=== PATIENT | male | born 1965 | race Caucasian/White ===

== ENCOUNTER 2025-02-03 03:42 | Outpatient (CLI) | payer OTHER, SELFPAY ==
[2025-02-03 10:17] LABS: Abs Immature Grans 0.04 10^3/uL (0.0-0.06); HCT 40.1 % (40.0-50.0); HGB 13.6 g/dL (13.5-17.5); Immature Grans % 0.4 %; MCH 29.9 pg (27.0-33.0); MCHC 33.9 % (32.0-36.0); MCV 88 fL (80-95); MPV 8.0 fL (8.0-11.0); Platelet Count 345 10^3/uL (130-400); RBC 4.55 10^6/uL (4.36-5.78); RDW 12.0 % (11.8-14.1); RDW-SD 38.7 fL; WBC 11.03 10^3/uL (4.4-10.8)
[2025-02-03 10:29] LABS: ALT 59 U/L (16-63); AST 21 U/L (15-37); Albumin 3.7 g/dL (3.4-5.0); Alkaline Phosphatase 113 U/L (46-116); Anion Gap 11.3 mmol/L (3-11); BUN 14 mg/dL (7-18); Bilirubin, Total 0.5 mg/dL (0.2-1.0); CO2 26.7 mmol/L (21.0-32.0); Calcium 9.7 mg/dL (8.5-10.1); Chloride 99 mmol/L (98-107); Estimated GFR 101.32 (mL/min/1.73m2); Glucose 143 mg/dL (74-106); Magnesium 2.1 mg/dL (1.8-2.4); Potassium 3.8 mmol/L (3.5-5.1); Sodium 137 mmol/L (136-145); Total Protein 8.2 g/dL (6.4-8.2)
== END 2025-02-03 03:43 | disposition home or self-care (01) ==
PROVIDERS: PCP Family Medicine; Visit Provider Internal Medicine Hematology
DX: C07 Malignant neoplasm of parotid gland (principal)
CPT/HCPCS: 36415; 80053; 83735; 85025

== ENCOUNTER 2025-02-10 03:09 | Outpatient (CLI) | payer OTHER, SELFPAY ==
[2025-02-10 08:31] LABS: Abs Immature Grans 0.03 10^3/uL (0.0-0.06); HCT 39.4 % (40.0-50.0); HGB 13.2 g/dL (13.5-17.5); Immature Grans % 0.4 %; MCH 29.7 pg (27.0-33.0); MCHC 33.5 % (32.0-36.0); MCV 89 fL (80-95); MPV 8.2 fL (8.0-11.0); Platelet Count 255 10^3/uL (130-400); RBC 4.45 10^6/uL (4.36-5.78); RDW 11.9 % (11.8-14.1); RDW-SD 38.5 fL; WBC 7.86 10^3/uL (4.4-10.8)
[2025-02-10 08:54] LABS: ALT 34 U/L (16-63); AST 13 U/L (15-37); Albumin 3.6 g/dL (3.4-5.0); Alkaline Phosphatase 119 U/L (46-116); Anion Gap 6.8 mmol/L (3-11); BUN 16 mg/dL (7-18); Bilirubin, Total 0.4 mg/dL (0.2-1.0); CO2 30.2 mmol/L (21.0-32.0); Calcium 9.7 mg/dL (8.5-10.1); Chloride 97 mmol/L (98-107); Estimated GFR 86.16 (mL/min/1.73m2); Glucose 112 mg/dL (74-106); Magnesium 1.9 mg/dL (1.8-2.4); Potassium 4.2 mmol/L (3.5-5.1); Sodium 134 mmol/L (136-145); Total Protein 7.9 g/dL (6.4-8.2)
== END 2025-02-10 03:10 | disposition home or self-care (01) ==
LOC: LBO 03:09
PROVIDERS: PCP Family Medicine; Visit Provider Internal Medicine Hematology
DX: C07 Malignant neoplasm of parotid gland (principal)
CPT/HCPCS: 36415; 80053; 83735; 85025

== ENCOUNTER 2025-02-17 01:59 | Outpatient (CLI) | payer OTHER, SELFPAY ==
[2025-02-17 08:09] LABS: Abs Immature Grans 0.02 10^3/uL (0.0-0.06); HCT 39.0 % (40.0-50.0); HGB 13.1 g/dL (13.5-17.5); Immature Grans % 0.3 %; MCH 30.0 pg (27.0-33.0); MCHC 33.6 % (32.0-36.0); MCV 89 fL (80-95); MPV 8.1 fL (8.0-11.0); Platelet Count 234 10^3/uL (130-400); RBC 4.36 10^6/uL (4.36-5.78); RDW 11.9 % (11.8-14.1); RDW-SD 38.3 fL; WBC 5.91 10^3/uL (4.4-10.8)
[2025-02-17 08:45] LABS: ALT 42 U/L (16-63); AST 14 U/L (15-37); Albumin 3.6 g/dL (3.4-5.0); Alkaline Phosphatase 129 U/L (46-116); Anion Gap 7.2 mmol/L (3-11); BUN 23 mg/dL (7-18); Bilirubin, Total 0.4 mg/dL (0.2-1.0); CO2 30.8 mmol/L (21.0-32.0); Calcium 9.8 mg/dL (8.5-10.1); Chloride 99 mmol/L (98-107); Estimated GFR 86.16 (mL/min/1.73m2); Glucose 81 mg/dL (74-106); Magnesium 1.8 mg/dL (1.8-2.4); Potassium 4.1 mmol/L (3.5-5.1); Sodium 137 mmol/L (136-145); Total Protein 7.8 g/dL (6.4-8.2)
== END 2025-02-17 02:00 | disposition home or self-care (01) ==
LOC: LBO 01:59
PROVIDERS: PCP Family Medicine; Visit Provider Internal Medicine Hematology
DX: C07 Malignant neoplasm of parotid gland (principal)
CPT/HCPCS: 36415; 80053; 83735; 85025

== ENCOUNTER 2025-02-24 03:02 | Outpatient (CLI) | payer OTHER, SELFPAY ==
[2025-02-24 08:56] LABS: Abs Immature Grans 0.01 10^3/uL (0.0-0.06); HCT 37.0 % (40.0-50.0); HGB 12.8 g/dL (13.5-17.5); Immature Grans % 0.2 %; MCH 30.1 pg (27.0-33.0); MCHC 34.6 % (32.0-36.0); MCV 87 fL (80-95); MPV 8.1 fL (8.0-11.0); Platelet Count 191 10^3/uL (130-400); RBC 4.25 10^6/uL (4.36-5.78); RDW 11.9 % (11.8-14.1); RDW-SD 37.6 fL; WBC 4.45 10^3/uL (4.4-10.8)
[2025-02-24 09:17] LABS: ALT 36 U/L (16-63); AST 18 U/L (15-37); Albumin 3.5 g/dL (3.4-5.0); Alkaline Phosphatase 113 U/L (46-116); Anion Gap 8.4 mmol/L (3-11); BUN 20 mg/dL (7-18); Bilirubin, Total 0.6 mg/dL (0.2-1.0); CO2 28.6 mmol/L (21.0-32.0); Calcium 9.9 mg/dL (8.5-10.1); Chloride 97 mmol/L (98-107); Estimated GFR 97.78 (mL/min/1.73m2); Glucose 114 mg/dL (74-106); Magnesium 1.8 mg/dL (1.8-2.4); Potassium 4.5 mmol/L (3.5-5.1); Sodium 134 mmol/L (136-145); Total Protein 8.0 g/dL (6.4-8.2)
== END 2025-02-24 03:03 | disposition home or self-care (01) ==
LOC: LBO 03:04
PROVIDERS: PCP Family Medicine; Visit Provider Internal Medicine Hematology
DX: C07 Malignant neoplasm of parotid gland (principal)
CPT/HCPCS: 36415; 80053; 83735; 85025

== ENCOUNTER 2025-03-03 03:26 | Outpatient (CLI) | payer OTHER, SELFPAY ==
[2025-03-03 08:31] LABS: Abs Immature Grans 0.01 10^3/uL (0.0-0.06); HCT 34.7 % (40.0-50.0); HGB 11.8 g/dL (13.5-17.5); Immature Grans % 0.4 %; MCH 29.7 pg (27.0-33.0); MCHC 34.0 % (32.0-36.0); MCV 87 fL (80-95); MPV 8.3 fL (8.0-11.0); Platelet Count 150 10^3/uL (130-400); RBC 3.97 10^6/uL (4.36-5.78); RDW 11.9 % (11.8-14.1); RDW-SD 37.7 fL; WBC 2.49 10^3/uL (4.4-10.8)
[2025-03-03 08:48] LABS: ALT 37 U/L (16-63); AST 20 U/L (15-37); Albumin 3.7 g/dL (3.4-5.0); Alkaline Phosphatase 124 U/L (46-116); Anion Gap 6.3 mmol/L (3-11); BUN 19 mg/dL (7-18); Bilirubin, Total 0.6 mg/dL (0.2-1.0); CO2 31.7 mmol/L (21.0-32.0); Calcium 9.8 mg/dL (8.5-10.1); Chloride 96 mmol/L (98-107); Estimated GFR 86.16 (mL/min/1.73m2); Glucose 112 mg/dL (74-106); Magnesium 1.7 mg/dL (1.8-2.4); Potassium 4.6 mmol/L (3.5-5.1); Sodium 134 mmol/L (136-145); Total Protein 8.1 g/dL (6.4-8.2)
== END 2025-03-03 03:27 | disposition home or self-care (01) ==
LOC: LBO 03:26
PROVIDERS: PCP Family Medicine; Visit Provider Internal Medicine Hematology
DX: C07 Malignant neoplasm of parotid gland (principal)
CPT/HCPCS: 36415; 80053; 83735; 85025

== ENCOUNTER 2025-03-24 03:37 | Outpatient (RCR) | payer OTHER, SELFPAY ==
[2025-03-10 08:03] LABS: Abs Immature Grans 0.02 10^3/uL (0.0-0.06); HCT 30.9 % (40.0-50.0); HGB 10.9 g/dL (13.5-17.5); Immature Grans % 1.2 %; MCH 30.3 pg (27.0-33.0); MCHC 35.3 % (32.0-36.0); MCV 86 fL (80-95); MPV 8.3 fL (8.0-11.0); Platelet Count 190 10^3/uL (130-400); RBC 3.60 10^6/uL (4.36-5.78); RDW 11.9 % (11.8-14.1); RDW-SD 35.7 fL
[2025-03-10 08:23] LABS: RBC Morphology Normal
[2025-03-10 08:24] LABS: ALT 29 U/L (16-63); AST 16 U/L (15-37); Albumin 3.4 g/dL (3.4-5.0); Alkaline Phosphatase 111 U/L (46-116); Anion Gap 8.7 mmol/L (3-11); BUN 23 mg/dL (7-18); Bilirubin, Total 0.6 mg/dL (0.2-1.0); CO2 28.3 mmol/L (21.0-32.0); Calcium 9.3 mg/dL (8.5-10.1); Chloride 95 mmol/L (98-107); Estimated GFR 97.78 (mL/min/1.73m2); Glucose 107 mg/dL (74-106); Magnesium 1.6 mg/dL (1.8-2.4); Potassium 3.9 mmol/L (3.5-5.1); Sodium 132 mmol/L (136-145); Total Protein 7.7 g/dL (6.4-8.2)
[2025-03-10 08:37] LABS: WBC 1.61 10^3/uL (4.4-10.8)
[2025-03-10] MEDS: Normal Saline Flush 10 ML SYR IVP (09:37)
[2025-03-17 09:24] LABS: Abs Immature Grans 0.01 10^3/uL (0.0-0.06); HCT 29.5 % (40.0-50.0); HGB 10.2 g/dL (13.5-17.5); Immature Grans % 0.5 %; MCH 30.3 pg (27.0-33.0); MCHC 34.6 % (32.0-36.0); MCV 88 fL (80-95); MPV 8.2 fL (8.0-11.0); Platelet Count 273 10^3/uL (130-400); RBC 3.37 10^6/uL (4.36-5.78); RDW 13.2 % (11.8-14.1); RDW-SD 38.6 fL; WBC 2.21 10^3/uL (4.4-10.8)
[2025-03-17 09:59] LABS: ALT 23 U/L (16-63); AST 14 U/L (15-37); Albumin 3.2 g/dL (3.4-5.0); Alkaline Phosphatase 130 U/L (46-116); Anion Gap 10.8 mmol/L (3-11); BUN 20 mg/dL (7-18); Bilirubin, Total 0.4 mg/dL (0.2-1.0); CO2 28.2 mmol/L (21.0-32.0); Calcium 9.8 mg/dL (8.5-10.1); Chloride 97 mmol/L (98-107); Estimated GFR 97.78 (mL/min/1.73m2); Glucose 118 mg/dL (74-106); Magnesium 1.7 mg/dL (1.8-2.4); Potassium 4.2 mmol/L (3.5-5.1); Sodium 136 mmol/L (136-145); Total Protein 7.7 g/dL (6.4-8.2)
[2025-03-17] MEDS: Normal Saline Flush 10 ML SYR IVP (10:09)
[2025-03-24 09:33] LABS: Abs Immature Grans 0.06 10^3/uL (0.0-0.06); HCT 30.1 % (40.0-50.0); HGB 10.5 g/dL (13.5-17.5); Immature Grans % 1.9 %; MCH 30.4 pg (27.0-33.0); MCHC 34.9 % (32.0-36.0); MCV 87 fL (80-95); MPV 8.3 fL (8.0-11.0); Platelet Count 308 10^3/uL (130-400); RBC 3.45 10^6/uL (4.36-5.78); RDW 13.3 % (11.8-14.1); RDW-SD 39.8 fL; WBC 3.19 10^3/uL (4.4-10.8)
[2025-03-24 10:07] LABS: ALT 30 U/L (16-63); AST 21 U/L (15-37); Albumin 3.4 g/dL (3.4-5.0); Alkaline Phosphatase 133 U/L (46-116); Anion Gap 10.2 mmol/L (3-11); BUN 22 mg/dL (7-18); Bilirubin, Total 0.4 mg/dL (0.2-1.0); CO2 27.8 mmol/L (21.0-32.0); Calcium 9.9 mg/dL (8.5-10.1); Chloride 97 mmol/L (98-107); Estimated GFR 86.16 (mL/min/1.73m2); Glucose 117 mg/dL (74-106); Magnesium 1.6 mg/dL (1.8-2.4); Potassium 4.3 mmol/L (3.5-5.1); Sodium 135 mmol/L (136-145); Total Protein 8.0 g/dL (6.4-8.2)
[2025-03-24] MEDS: Normal Saline Flush 10 ML SYR IVP (11:08)
== END 2025-03-30 23:59 | disposition home or self-care (01) ==
LOC: INF 03:37
PROVIDERS: Internal Medicine Hematology; PCP Family Medicine; Visit Provider Nurse Practitioner
DX: C07 Malignant neoplasm of parotid gland (principal); Z45.2 Encounter for adjustment and management of vascular access device
CPT/HCPCS: 36591; 80053; 83735; 85025

== ENCOUNTER 2025-04-21 09:30 | Outpatient (RCR) | payer OTHER, SELFPAY ==
[2025-04-02] MEDS: Normal Saline Flush 10 ML SYR IVP (08:08)
[2025-04-02 08:36] LABS: Abs Immature Grans 0.01 10^3/uL (0.0-0.06); HCT 28.7 % (40.0-50.0); HGB 9.6 g/dL (13.5-17.5); Immature Grans % 0.3 %; MCH 30.6 pg (27.0-33.0); MCHC 33.4 % (32.0-36.0); MCV 91 fL (80-95); MPV 8.3 fL (8.0-11.0); Platelet Count 247 10^3/uL (130-400); RBC 3.14 10^6/uL (4.36-5.78); RDW 15.8 % (11.8-14.1); RDW-SD 51.2 fL; WBC 3.21 10^3/uL (4.4-10.8)
[2025-04-02 08:58] LABS: ALT 19 U/L (16-63); AST 15 U/L (15-37); Albumin 3.5 g/dL (3.4-5.0); Alkaline Phosphatase 129 U/L (46-116); Anion Gap 7.5 mmol/L (3-11); BUN 27 mg/dL (7-18); Bilirubin, Total 0.5 mg/dL (0.2-1.0); CO2 30.5 mmol/L (21.0-32.0); Calcium 9.6 mg/dL (8.5-10.1); Chloride 100 mmol/L (98-107); Estimated GFR 86.16 (mL/min/1.73m2); Glucose 95 mg/dL (74-106); Magnesium 1.7 mg/dL (1.8-2.4); Potassium 4.4 mmol/L (3.5-5.1); Sodium 138 mmol/L (136-145); Total Protein 7.5 g/dL (6.4-8.2)
[2025-04-07] MEDS: Normal Saline Flush 10 ML SYR IVP (10:00)
[2025-04-07 10:38] LABS: Abs Immature Grans 0.01 10^3/uL (0.0-0.06); HCT 28.5 % (40.0-50.0); HGB 9.5 g/dL (13.5-17.5); Immature Grans % 0.2 %; MCH 30.4 pg (27.0-33.0); MCHC 33.3 % (32.0-36.0); MCV 91 fL (80-95); MPV 8.7 fL (8.0-11.0); Platelet Count 222 10^3/uL (130-400); RBC 3.12 10^6/uL (4.36-5.78); RDW 16.2 % (11.8-14.1); RDW-SD 53.1 fL; WBC 4.29 10^3/uL (4.4-10.8)
[2025-04-07 11:04] LABS: ALT 17 U/L (16-63); AST 12 U/L (15-37); Albumin 3.5 g/dL (3.4-5.0); Alkaline Phosphatase 131 U/L (46-116); Anion Gap 9.9 mmol/L (3-11); BUN 21 mg/dL (7-18); Bilirubin, Total 0.4 mg/dL (0.2-1.0); CO2 27.1 mmol/L (21.0-32.0); Calcium 9.9 mg/dL (8.5-10.1); Chloride 99 mmol/L (98-107); Estimated GFR 97.78 (mL/min/1.73m2); Glucose 102 mg/dL (74-106); Magnesium 1.8 mg/dL (1.8-2.4); Potassium 4.1 mmol/L (3.5-5.1); Sodium 136 mmol/L (136-145); Total Protein 7.5 g/dL (6.4-8.2)
[2025-04-14 08:32] LABS: Abs Immature Grans 0.01 10^3/uL (0.0-0.06); HCT 29.5 % (40.0-50.0); HGB 9.9 g/dL (13.5-17.5); Immature Grans % 0.3 %; MCH 31.0 pg (27.0-33.0); MCHC 33.6 % (32.0-36.0); MCV 93 fL (80-95); MPV 8.5 fL (8.0-11.0); Platelet Count 220 10^3/uL (130-400); RBC 3.19 10^6/uL (4.36-5.78); RDW 16.0 % (11.8-14.1); RDW-SD 53.3 fL; WBC 3.41 10^3/uL (4.4-10.8)
[2025-04-14] MEDS: Normal Saline Flush 10 ML SYR IVP (08:42)
[2025-04-14 08:46] LABS: ALT 21 U/L (16-63); AST 17 U/L (15-37); Albumin 3.6 g/dL (3.4-5.0); Alkaline Phosphatase 122 U/L (46-116); Anion Gap 8.8 mmol/L (3-11); BUN 18 mg/dL (7-18); Bilirubin, Total 0.4 mg/dL (0.2-1.0); CO2 28.2 mmol/L (21.0-32.0); Calcium 9.9 mg/dL (8.5-10.1); Chloride 101 mmol/L (98-107); Estimated GFR 97.78 (mL/min/1.73m2); Glucose 102 mg/dL (74-106); Magnesium 1.8 mg/dL (1.8-2.4); Potassium 4.0 mmol/L (3.5-5.1); Sodium 138 mmol/L (136-145); Total Protein 7.6 g/dL (6.4-8.2)
[2025-04-21] MEDS: Normal Saline Flush 10 ML SYR IVP (09:32)
[2025-04-21 09:40] LABS: Abs Immature Grans 0.01 10^3/uL (0.0-0.06); HCT 28.5 % (40.0-50.0); HGB 9.4 g/dL (13.5-17.5); Immature Grans % 0.3 %; MCH 31.1 pg (27.0-33.0); MCHC 33.0 % (32.0-36.0); MCV 94 fL (80-95); MPV 8.2 fL (8.0-11.0); Platelet Count 215 10^3/uL (130-400); RBC 3.02 10^6/uL (4.36-5.78); RDW 16.1 % (11.8-14.1); RDW-SD 55.4 fL; WBC 3.43 10^3/uL (4.4-10.8)
[2025-04-21 10:01] LABS: ALT 25 U/L (16-63); AST 16 U/L (15-37); Albumin 3.7 g/dL (3.4-5.0); Alkaline Phosphatase 110 U/L (46-116); Anion Gap 7.1 mmol/L (3-11); BUN 19 mg/dL (7-18); Bilirubin, Total 0.4 mg/dL (0.2-1.0); CO2 27.9 mmol/L (21.0-32.0); Calcium 9.5 mg/dL (8.5-10.1); Chloride 102 mmol/L (98-107); Estimated GFR 97.78 (mL/min/1.73m2); Glucose 168 mg/dL (74-106); Magnesium 1.7 mg/dL (1.8-2.4); Potassium 4.0 mmol/L (3.5-5.1); Sodium 137 mmol/L (136-145); Total Protein 7.2 g/dL (6.4-8.2)
== END 2025-04-29 23:59 | disposition home or self-care (01) ==
LOC: INF 09:30
PROVIDERS: Internal Medicine Hematology; PCP Family Medicine; Visit Provider Nurse Practitioner
DX: C07 Malignant neoplasm of parotid gland (principal)
CPT/HCPCS: 36591; 80053; 83735; 85025

== ENCOUNTER 2025-05-26 00:23 | Outpatient (RCR) | payer OTHER, SELFPAY ==
[2025-05-12 08:48] LABS: Abs Immature Grans 0.01 10^3/uL (0.0-0.06); HCT 33.0 % (40.0-50.0); HGB 11.2 g/dL (13.5-17.5); Immature Grans % 0.4 %; MCH 32.2 pg (27.0-33.0); MCHC 33.9 % (32.0-36.0); MCV 95 fL (80-95); MPV 8.4 fL (8.0-11.0); Platelet Count 260 10^3/uL (130-400); RBC 3.48 10^6/uL (4.36-5.78); RDW 13.1 % (11.8-14.1); RDW-SD 45.7 fL; WBC 2.64 10^3/uL (4.4-10.8)
[2025-05-12] MEDS: Normal Saline Flush 10 ML SYR IVP (09:05)
[2025-05-12 09:13] LABS: ALT 34 U/L (16-63); AST 20 U/L (15-37); Albumin 3.9 g/dL (3.4-5.0); Alkaline Phosphatase 128 U/L (46-116); Anion Gap 10.8 mmol/L (3-11); BUN 20 mg/dL (7-18); Bilirubin, Total 0.5 mg/dL (0.2-1.0); CO2 28.2 mmol/L (21.0-32.0); Calcium 9.7 mg/dL (8.5-10.1); Chloride 100 mmol/L (98-107); Glucose 96 mg/dL (74-106); Magnesium 2.0 mg/dL (1.8-2.4); Potassium 3.9 mmol/L (3.5-5.1); Sodium 139 mmol/L (136-145); Total Protein 7.9 g/dL (6.4-8.2)
[2025-05-21 12:46] LABS: Abs Immature Grans 0.01 10^3/uL (0.0-0.06); HCT 31.7 % (40.0-50.0); HGB 10.4 g/dL (13.5-17.5); Immature Grans % 0.3 %; MCH 30.9 pg (27.0-33.0); MCHC 32.8 % (32.0-36.0); MCV 94 fL (80-95); MPV 8.8 fL (8.0-11.0); Platelet Count 221 10^3/uL (130-400); RBC 3.37 10^6/uL (4.36-5.78); RDW 12.5 % (11.8-14.1); RDW-SD 42.9 fL; WBC 2.92 10^3/uL (4.4-10.8)
[2025-05-21 13:14] LABS: ALT 40 U/L (16-63); AST 18 U/L (15-37); Albumin 3.5 g/dL (3.4-5.0); Alkaline Phosphatase 138 U/L (46-116); Anion Gap 8.5 mmol/L (3-11); BUN 17 mg/dL (7-18); Bilirubin, Total 0.4 mg/dL (0.2-1.0); CO2 29.5 mmol/L (21.0-32.0); Calcium 9.2 mg/dL (8.5-10.1); Chloride 101 mmol/L (98-107); Glucose 180 mg/dL (74-106); Magnesium 1.9 mg/dL (1.8-2.4); Potassium 4.0 mmol/L (3.5-5.1); Sodium 139 mmol/L (136-145); Total Protein 7.3 g/dL (6.4-8.2)
[2025-05-21] MEDS: Normal Saline Flush 10 ML SYR IVP (13:41)
[2025-05-26] MEDS: Normal Saline Flush 10 ML SYR IVP (12:39)
[2025-05-26 12:46] LABS: Abs Immature Grans 0.00 10^3/uL (0.0-0.06); HCT 33.6 % (40.0-50.0); HGB 11.4 g/dL (13.5-17.5); Immature Grans % 0.0 %; MCH 31.4 pg (27.0-33.0); MCHC 33.9 % (32.0-36.0); MCV 93 fL (80-95); MPV 8.4 fL (8.0-11.0); Platelet Count 230 10^3/uL (130-400); RBC 3.63 10^6/uL (4.36-5.78); RDW 11.9 % (11.8-14.1); RDW-SD 40.5 fL; WBC 3.60 10^3/uL (4.4-10.8)
[2025-05-26 13:12] LABS: ALT 45 U/L (16-63); AST 24 U/L (15-37); Albumin 3.7 g/dL (3.4-5.0); Alkaline Phosphatase 152 U/L (46-116); Anion Gap 10.4 mmol/L (3-11); BUN 16 mg/dL (7-18); Bilirubin, Total 0.5 mg/dL (0.2-1.0); CO2 28.6 mmol/L (21.0-32.0); Calcium 9.5 mg/dL (8.5-10.1); Chloride 101 mmol/L (98-107); Glucose 107 mg/dL (74-106); Magnesium 2.0 mg/dL (1.8-2.4); Potassium 4.1 mmol/L (3.5-5.1); Sodium 140 mmol/L (136-145); Total Protein 7.5 g/dL (6.4-8.2)
== END 2025-05-30 23:59 | disposition home or self-care (01) ==
LOC: INF 00:23
PROVIDERS: Internal Medicine Hematology; PCP Family Medicine; Visit Provider Nurse Practitioner
DX: C07 Malignant neoplasm of parotid gland (principal); Z45.2 Encounter for adjustment and management of vascular access device
CPT/HCPCS: 36591; 80053; 83735; 85025